=== PATIENT | male | born 1960 | race Caucasian/White ===

== ENCOUNTER 2019-02-16 14:30 | Emergency (ER) | payer MEDICAID, OTHER ==
[~2019-02-16] VITALS: Ht 180.3 cm; Wt 98.0 kg
[2019-02-16 14:58] VITALS: BP 155/101
[2019-02-16] MEDS ORDERED: HYDROmorphone 1 MG/ML, 1ML INJ IM ONE (15:30)
[2019-02-16] MEDS ORDERED: ONDANSETRON ODT 4 MG PO ONE (15:30)
[2019-02-16] MEDS ORDERED: ONDANSETRON ODT 4 MG ONE (15:32)
[2019-02-16] MEDS ORDERED: HYDROmorphone 1 MG/ML, 1ML INJ ONE (15:33)
[2019-02-16] MEDS ORDERED: KETOROLAC 30 MG/1 ML ONE (16:14)
[2019-02-16] MEDS ORDERED: DIAZEPAM 5 MG TABLET ONE (16:14)
[2019-02-16] MEDS ORDERED: DIAZEPAM 5 MG TABLET PO ONE (16:30)
[2019-02-16] MEDS ORDERED: KETOROLAC 30 MG/1 ML IM ONE (16:30)
== END 2019-02-16 17:15 | disposition home or self-care (01) ==
LOC: ED 17:09
DX: M54.5 Low back pain (principal); E11.9 Type 2 diabetes mellitus without complications; I10 Essential (primary) hypertension; F17.210 Nicotine dependence, cigarettes, uncomplicated
CPT/HCPCS: 96372; 99283; J1170; J1885; Q0162

== ENCOUNTER 2019-03-29 19:18 | Emergency (ER) | payer MEDICARE, MEDICAID ==
[~2019-03-29] VITALS: Ht 180.3 cm; Wt 95.8 kg
[2019-03-29 20:05] LABS: BASOPHILS # (AUTO) 0.03 x10^3/uL (0-0.1); BASOPHILS % (AUTO) 0 % (0-1); EOSINOPHILS # (AUTO) 0.04 x10^3/uL (0-0.4); EOSINOPHILS % (AUTO) 1 % (1-7); LYMPHOCYTES % (AUTO) 15 % (22-44); MD NO; MEAN CORPUSCULAR HEMOGLOBIN 29.2 pg (27.5-34.5); MEAN CORPUSCULAR HGB CONC 33.9 g/dL (33.2-36.2); MEAN CORPUSCULAR VOLUME 85.9 fL (81-97); MEAN PLATELET VOLUME 8.8 fL (7.4-10.4); MONOCYTES # (AUTO) 0.65 x10^3/uL (0.2-0.8); MONOCYTES % (AUTO) 7 % (2-9); NEUTROPHILS # (AUTO) 7.46 x10^3/uL (1.8-6.8); NEUTROPHILS % (AUTO) 78 % (42-75); PLATELET COUNT 288 x10^3/uL (130-400); RED BLOOD COUNT 5.06 x10^6/uL (4.38-5.82); RED CELL DISTRIBUTION WIDTH 13.3 % (9.4-14.8)
[2019-03-29 20:18] LABS: ALANINE AMINOTRANSFERASE 20 U/L (12-78); ALBUMIN 2.9 g/dL (3.4-5.0); ANION GAP 12 mmol/L (5-15); CALCIUM 8.7 mg/dL (8.5-10.1); CHLORIDE 101 mmol/L (98-107); CREATININE 1.32 mg/dL (0.7-1.3)
[2019-03-29 20:22] LABS: ALKALINE PHOSPHATASE 106 U/L (45-117); BILIRUBIN,TOTAL 0.3 mg/dL (0.2-1.0); TOTAL PROTEIN 7.1 g/dL (6.4-8.2); TROPONIN I < 0.015 ng/mL (0.000-0.045)
[2019-03-29] MEDS ORDERED: OMNIPAQUE 350 MG/ML, 100ML BOTTLE ONE (21:35)
[2019-03-29 21:39] VITALS: BP 144/78
[2019-03-29] MEDS ORDERED: MORPHINE SULFATE 4 MG/ML, 1ML IVPush ONE (22:30)
[2019-03-29] MEDS ORDERED: METHOCARBAMOL 750 MG TABLET PO ONE (22:30)
[2019-03-29] MEDS ORDERED: METHOCARBAMOL 750 MG TABLET ONE (22:40)
[2019-03-29] MEDS ORDERED: MORPHINE SULFATE 4 MG/ML, 1ML ONE (22:41)
--- NOTE | 2019-03-29 23:09 | NUR ---
Discharge instructions given. All questions and concerns addressed. Patient ambulatory with a steady gait. Belongings with patient.
== END 2019-03-29 23:11 | disposition home or self-care (01) ==
LOC: ED 22:13
DX: R55 Syncope and collapse (principal); E11.65 Type 2 diabetes mellitus with hyperglycemia; R42 Dizziness and giddiness; M54.2 Cervicalgia; I10 Essential (primary) hypertension
CPT/HCPCS: 70450; 71045; 71275; 72125; 80053; 82962; 84484; 85025; 85379; 93005; 96374; 99284; J2270; Q9967

== ENCOUNTER 2020-04-06 15:29 | Emergency (ER) | payer MEDICARE, MEDICAID ==
[~2020-04-06] VITALS: Ht 180.3 cm; Wt 98.1 kg
[2020-04-06 16:24] LABS: BASOPHILS % (AUTO) 1 % (0-1); EOSINOPHILS % (AUTO) 1 % (1-7); LYMPHOCYTES % (AUTO) 21 % (22-44); MEAN CORPUSCULAR HEMOGLOBIN 29.3 pg (27.5-34.5); MEAN PLATELET VOLUME 8.3 fL (7.4-10.4); MONOCYTES % (AUTO) 7 % (2-9); NEUTROPHILS % (AUTO) 71 % (42-75); PLATELET COUNT 244 x10^3/uL (130-400); RED BLOOD COUNT 5.77 x10^6/uL (4.38-5.82); RED CELL DISTRIBUTION WIDTH 13.6 % (9.4-14.8)
[2020-04-06 16:25] LABS: MD NO
[2020-04-06] MEDS ORDERED: SODIUM CHLORIDE FLUSH 10ML SYR IVF ONE (16:30)
[2020-04-06 16:34] LABS: ALBUMIN 3.9 g/dL (3.4-5.0); ANION GAP 8 mmol/L (5-15); CALCIUM 9.7 mg/dL (8.5-10.1); CHLORIDE 107 mmol/L (98-107)
[2020-04-06 16:40] LABS: ALANINE AMINOTRANSFERASE 26 U/L (12-78); ALKALINE PHOSPHATASE 105 U/L (45-117); BILIRUBIN,TOTAL 0.9 mg/dL (0.2-1.0); CREATININE 1.75 mg/dL (0.7-1.3); TOTAL PROTEIN 7.8 g/dL (6.4-8.2); TROPONIN I < 0.015 ng/mL (0.000-0.045)
[2020-04-06] MEDS ORDERED: SODIUM CHLORIDE 0.9% 1,000ML IVBOLUS ONE (17:30)
[2020-04-06] MEDS ORDERED: MORPHINE SULFATE 4 MG/ML, 1ML ONE (17:40)
[2020-04-06] MEDS ORDERED: MORPHINE SULFATE 4 MG/ML, 1ML IVPush PRN (18:00)
[2020-04-06 19:04] VITALS: BP 134/92
== END 2020-04-06 19:07 | disposition home or self-care (01) ==
LOC: ED 19:01
DX: R07.89 Other chest pain (principal); T40.495A Adverse effect of other synthetic narcotics, initial encounter; N28.9 Disorder of kidney and ureter, unspecified; Y92.89 Other specified places as the place of occurrence of the external cause; R00.0 Tachycardia, unspecified; R51.9 Headache, unspecified; R06.02 Shortness of breath; R42 Dizziness and giddiness; R11.0 Nausea; I10 Essential (primary) hypertension; E78.5 Hyperlipidemia, unspecified; E11.9 Type 2 diabetes mellitus without complications
CPT/HCPCS: 36415; 71045; 80053; 82962; 84484; 85025; 85379; 93005; 96361; 96374; 99285; J2270; J7030

== ENCOUNTER 2020-04-30 09:47 | Emergency (ER) | payer MEDICARE, MEDICAID ==
[~2020-04-30] VITALS: Ht 180.3 cm; Wt 101.0 kg
--- NOTE | 2020-04-30 10:07 | NUR ---
C/O LOWER LEG SWELLING & REDNESS BILATERALLY X 6 DAYS. HX DIABETES. NOTICED SPLINTER UNDER RT THUMBNAIL 6 DAYS AGO; WAS ATTEMPTING TO REMOVE MOUSE NEST W/ BARE HANDS. PEDAL PULSES STRONG & REG BILAT. BILATERALLY: NON-PITTING EDEMA, REDNESS TO MID-ANSARI TO ANKLE, SKIN COOL TO TOUCH. HOME GLUCOSE READIN THIS MORNING.
[2020-04-30] MEDS ORDERED: ASPI-1026 PO (10:18)
[2020-04-30] MEDS ORDERED: FENO145T19 PO (10:18)
[2020-04-30] MEDS ORDERED: EMPA10TA PO (10:18)
[2020-04-30] MEDS ORDERED: AMLO2.5T5 PO (10:18)
[2020-04-30] MEDS ORDERED: OXYC18CA PO (10:18)
[2020-04-30] MEDS ORDERED: INSU100I13 SQ (10:18)
[2020-04-30] MEDS ORDERED: METF500T17 PO (10:18)
[2020-04-30] MEDS ORDERED: CYCL10TA2 PO (10:20)
[2020-04-30] MEDS ORDERED: FUROSEMIDE 20 MG TABLET ONE (10:43)
--- NOTE | 2020-04-30 10:47 | NUR ---
PT REPORTS HE DRINKS ABOUT 10 BOTTLES OF SUGAR-FREE GATORADE DAILY. DISCUSSED SODIUM CONTENT OF GATORADE AND EFFECT OF EXCESSIVE SODIUM. PT WILL TRY TO LIMIT GATORADE INTAKE.
[2020-04-30] MEDS ORDERED: FUROSEMIDE 20 MG TABLET PO ONE (11:00)
--- NOTE | 2020-04-30 11:29 | NUR ---
MARTY MACIAS APPLIED; APPLICATION INSTRUCTIONS DISCUSSED W/ PT; UNDERSTANDING VERBALIZED.
[2020-04-30 11:30] VITALS: BP 130/85
== END 2020-04-30 11:40 | disposition home or self-care (01) ==
LOC: ED 10:49
DX: I87.2 Venous insufficiency (chronic) (peripheral) (principal); R60.0 Localized edema; E11.9 Type 2 diabetes mellitus without complications
CPT/HCPCS: 99283

== ENCOUNTER 2020-05-12 14:55 | Emergency (ER) | payer MEDICARE, MEDICAID ==
[~2020-05-12] VITALS: Ht 180.3 cm; Wt 96.8 kg
[~2020-05-12 14:55] MED LIST: AMLO2.5T5 PO; ASPI-1026 PO; CYCL10TA2 PO; EMPA10TA PO; FENO145T19 PO; INSU100I13 SQ; METF500T17 PO; OXYC18CA PO
--- NOTE | 2020-05-12 16:23 | NUR ---
HUMAN CAPITAL CONSULTANT: PT TO ROOM FROM MELLO GORDILLO. PT DECLINED W/C.
--- NOTE | 2020-05-12 16:29 | NUR ---
BREAK RN: THIS IS A 59 YEAR OLD MALE WHO C/O OF DENTAL PAIN. "I HAVE SEVERAL TEETH THAT ARE ABCESSED AND BROKEN". PLACED PT ON CONTINOUS SP02 SATS 96, HR 126, AND CYCLE VS
[2020-05-12] MEDS ORDERED: PENICILLIN VK 500MG TABLET PO ONE (17:45)
[2020-05-12] MEDS ORDERED: LIDOCAINE-MPF 1%, 5ML ONE (17:47)
[2020-05-12] MEDS ORDERED: BUPIVACAINE 0.25% ONE (17:47)
[2020-05-12] MEDS ORDERED: LIDOCAINE-MPF 1%, 5ML INFIL ONE (18:00)
[2020-05-12] MEDS ORDERED: BUPIVACAINE/PF-EPI 0.25% 1:200K SQ ONE (18:00)
--- NOTE | 2020-05-12 18:02 | NUR ---
LIDOCAINE AND BUPIVICAINE PULLED FOR DR HINTON PER VERBAL ORDER.
--- NOTE | 2020-05-12 19:05 | NUR ---
BEDSIDE REPORT FROM BABAR RN, PT CARE TRANSFERRED AT THIS TIME. PT NAD, RESTING ON GURNEY, BED IN LOWEST, RAILS ENGAGED, DENIES ADDITIONAL QUESTIONS OR NEEDS AT THIS TIME, WCTM.
[2020-05-12] MEDS ORDERED: PENICILLIN VK 500MG TABLET ONE (19:10)
[2020-05-12 19:11] VITALS: BP 150/78
--- NOTE | 2020-05-12 19:24 | NUR ---
Patient given discharge instructions and they have confirmed that they understand the instructions. Patient ambulatory with steady gait. NAD, DENIES ADDITIONAL QUESTIONS OR NEEDS AT THIS TIME, NO PERSONAL BELONGINGS LEFT IN ROOM AFTER DC.
== END 2020-05-12 19:25 | disposition home or self-care (01) ==
LOC: ED 19:21
DX: K05.219 Aggressive periodontitis, localized, unspecified severity (principal); K02.9 Dental caries, unspecified; R22.0 Localized swelling, mass and lump, head; E11.65 Type 2 diabetes mellitus with hyperglycemia; R00.0 Tachycardia, unspecified; I10 Essential (primary) hypertension; F17.200 Nicotine dependence, unspecified, uncomplicated
CPT/HCPCS: 64400; 93005; 99284